=== PATIENT | male | born 1965 | race Caucasian/White ===

== ENCOUNTER 2016-10-11 07:11 | Emergency (ER) | payer OTHER ==
[2016-10-11 08:28] VITALS: BP 170/99
--- NOTE | 2016-10-17 11:47 | ED ---
Throat Pain/Nasal Congestion - HPI Summary HPI Summary: Pt here w/ Rt eyelid and surrounding area w/ redness and swelling x few days. Was seen by PCP yesterday and told to come to ED if swelling got worse - he and feel he has new onset of swelling beneath the eye now upon waking this morning. Pt denies visual change and ocular pain. No d/c or crusting. Pt has had sinus pressure and nasal congestion then eye started to swell along lid. Initially thought this was a stye however PCP dx'd w/ cellultitis and placed him on anbx which he's taken for 24 hours now. Reports swelling is worse in the AM and better as he's upright/day goes on. Denies fever, chills, ST, otalgia, neck pain, rash, scalp pain, dental pain. No trauma to eye or face prior to events starting. Does not wear contact lenses. Pt has a family member who developed orbital cellulitis so they came to be sure this is not his dx today. - History of Current Complaint Chief Complaint: EDEyeProblem Time Seen by Provider: 10/11/16 07:46 Hx Obtained From: Patient, Family/Sample Carrier - - Allergies/Home Medications Allergies/Adverse Reactions: Allergies Allergy/AdvReac Type Severity Reaction Status Date / Time No Known Allergies Allergy Verified 08/02/16 12:14 PMH/Surg Hx/FS Hx/Imm Hx Previously Healthy: Yes Endocrine/Hematology History: Denies: Autoimmune Disease Sensory History: Denies: Hx Cataracts, Hx Contacts or Glasses, Hx Eye Injury, Hx Eye Prosthesis, Hx Glaucoma, Hx Macular Degeneration, Hx Vision Problem Opthamlomology History: Denies: Hx Contacts or Glasses Infectious Disease History: No Infectious Disease History: Denies: Traveled Outside the [place] in Last 30 Days - Family History Known Family History: Positive: None - Social History Occupation: Employed Full-time - [employer] Lives: With Family Alcohol Use: Weekly Alcohol Amount: 1-2x/week Hx Substance Use: No Substance Use Type: Reports: None Hx Tobacco Use: No Smoking Status (MU): Never Smoked Tobacco Review of Systems Constitutional: Negative Eyes: Other - see HPI ENT: Negative Negative: Chest Pain Negative: Shortness Of Breath, Cough Gastrointestinal: Negative Positive: no symptoms reported Musculoskeletal: Negative Skin: Other - see HPI Negative: Headache, Weakness, Paresthesia, Numbness Psychological: Normal All Other Systems Reviewed And Are Negative: Yes Physical Exam Triage Information Reviewed: Yes Vital Signs On Initial Exam: Initial Vitals Temp Pulse Resp BP Pulse Ox 97.8 F 84 16 174/115 98 10/11/16 07:17 10/11/16 07:17 10/11/16 07:17 10/11/16 07:17 10/11/16 07:17 Vital Signs Reviewed: Yes Appearance: Positive: Well-Appearing, No Pain Distress, Obese Skin: Positive: Warm, Dry - Rt superior palpebra w/ erythema and edema but is not occulusive to pt's visual field - no flaking skin, no vesicles, no drainage no pustules within lid or margin; skin in infraorbital region w/ very mild erythema and edema and again no abnormal skin texture nor lesions observed Head/Face: Positive: Other - Rt maxillary sinus w/ mild TTP Eyes: Positive: Normal, EOMI, RYAN, Conjunctiva Clear. Negative: Conjunctiva Inflammed, Discharge ENT: Positive: Normal ENT inspection, Hearing grossly normal, Pharynx normal, TMs normal. Negative: Pharyngeal erythema - cobblestonig, Nasal congestion, Nasal drainage Neck: Positive: Supple, Nontender, No Lymphadenopathy Respiratory/Lung Sounds: Positive: Clear to Auscultation, Breath Sounds Present. Negative: Rales, Rhonchi, Wheezes Cardiovascular: Positive: Normal, RRR Abdomen Description: Positive: Nontender Bowel Sounds: Positive: Present Musculoskeletal: Positive: Normal, Strength/ROM Intact Neurological: Positive: Normal, Sensory/Motor Intact, Alert, Oriented to Person Place, Time, CN Intact II-III Psychiatric: Positive: Normal - concerned Diagnostics - Vital Signs Vital Signs Temp Pulse Resp BP Pulse Ox 10/11/16 08:27 97.4 F 84 17 170/99 10/11/16 07:17 97.8 F 84 16 174/115 98 - Laboratory Lab Statement: Any lab studies that have been ordered have been reviewed, and results considered in the medical decision making process. EENT Course/Dx - Course Course Of Treatment: Pt's exam presents as periorbital cellulitis - does not appear to be into the orbit as he is moving his eye well and w/o pain - no exopthalmus - swelling worse in morning most likely d/t dependent fluid. Reviewed dx and course w/ pt and - education about orbital cellulitis and they will watch for danger s/sx of when to return. Pt and agree w/ plan to conitnue augmentin. - Diagnoses Provider Diagnoses: Periorbital cellulitis of right eye Discharge - Discharge Plan Condition: Stable Disposition: HOME Patient Education Materials: Periorbital Cellulitis in Adults (ED) Referrals: Effie Mosley MD [Primary Care Provider] - Additional Instructions: Complete augmentin antibiotic You may try warm/cool compresses to aid in swelling symptoms You may also try zyrtec for swelling before bed Try saline nasal spray and decongesting agents such as menthol cough drop, Brian' s vapor rub - DO NOT APPLY TO EYES Stay hydrated *If you develop fever, pain with ocular movements, nausea, neck pain
== END 2016-10-11 08:27 | disposition home or self-care (01) ==
LOC: ED 07:11
DX: L03.213 Periorbital cellulitis (principal)
CPT/HCPCS: 99281

== ENCOUNTER 2017-04-09 18:08 | Emergency (ER) | payer OTHER ==
[2017-04-09] MEDS ORDERED: NS 0.9% 1000 ML* 1,000 ML IV ONE (19:30)
[2017-04-09 21:48] VITALS: BP 143/99
--- NOTE | 2017-04-09 22:01 | UC ---
French Augustin Benjamin, scribed for Lukas Hill MD on 04/09/17 at 1900 . FLU HPI - HPI Summary HPI Summary: 52yo male c/o chills and fever of 102.6F last night. Pt also felt shaky at one point yesterday and reports body aches, and sore throat. Pt also had racing pulses and dry cough last night around 2am with some bilateral flank pain. 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 Pt took Tylenol and Advil [employer] while relieved his symptoms. Currently asymptomatic. Pt denies any urinary symptoms. Denies possibility of tick bites. - History of Current Complaint Chief Complaint: UCGeneralIllness Stated Complaint: FEVER,ACHES,COLD,COUGH Time Seen by Provider: 04/09/17 18:42 Hx Obtained From: Patient, Family/Pedorthist - Onset/Duration: Sudden Onset, Lasting Hours, Resolved Severity Currently: None Severity Initially: Mild Pain Intensity: 0 Pain Scale Used: 0-10 Numeric Associated Signs & Symptoms: Positive: Fever, T Max - 102.6F, F/C, Cough - dry, Sore Throat - Allergy/Home Medications Allergies/Adverse Reactions: Allergies Allergy/AdvReac Type Severity Reaction Status Date / Time No Known Allergies Allergy Verified 04/09/17 18:16 PMH/Surg Hx/FS Hx/Imm Hx Cardiovascular History: Hypertension - Surgical History Surgical History: Yes Surgery Procedure, Year, and Place: hernia repair - Family History Known Family History: Positive: Cardiac Disease, Hypertension, Diabetes - Social History Occupation: Employed Full-time Lives: With Family Alcohol Use: Weekly Alcohol Amount: 1-2x/week Substance Use Type: None Smoking Status (MU): Never Smoked Tobacco Review of Systems Constitutional: Fever, Chills Skin: Negative Eyes: Negative ENT: Negative Respiratory: Negative Cardiovascular: Negative Gastrointestinal: Negative Genitourinary: Negative Motor: Negative Neurovascular: Negative Musculoskeletal: Negative Neurological: Negative Psychological: Negative All Other Systems Reviewed And Are Negative: Yes Physical Exam Triage Information Reviewed: Yes Appearance: No Pain Distress, Well-Nourished, Ill-Appearing - mildly ill appearing Vital Signs: Initial Vital Signs Temp 100.6 F 04/09/17 18:10 Pulse 128 04/09/17 18:10 Resp 20 04/09/17 18:10 BP 152/104 04/09/17 18:10 Pulse Ox 97 04/09/17 18:10 Eye Exam: Normal Eyes: Positive: Conjunctiva Clear ENT: Positive: Normal ENT inspection Neck: Positive: Supple, Nontender Respiratory: Positive: Chest non-tender, Lungs clear, Normal breath sounds Cardiovascular: Positive: No Murmur, Tachycardia Abdomen Description: Positive: Nontender, Soft. Negative: CVA Tenderness (R), CVA Tenderness (L) Musculoskeletal: Positive: Strength Intact, ROM Intact Neurological: Positive: Alert, Muscle Tone Normal Psychological: Positive: Age Appropriate Behavior Skin: Negative: rashes Diagnostics - Laboratory Diagnostic Studies Completed/Ordered: UA: positive for blood, ketone, billirubin , and protein. - EKG Cardiac Rate: Tachycardia - 112 bpm Cardiac Rhythm: Sinus: Normal - Sinus tachycardia. Inverted T wave at III Ectopy: None ST Segment: Normal Flu Course/Dx - Course Course Of Treatment: Reviewed medications list. NO FOCUS FOR THE FEVER. DISCUSSED POSSIBLE CAUSES WITH PATIENT/. PATIENT HAD POSSIBLE LEGONELLA EXPOSURE AT WORK. TACHYCARDIA IMPROVED IN CLINIC AFTER NS 1LITER. DISCUSSED FURTHER EVAL IN ED. PATIENT PREFERS TO GO HOME AND GET SEEN AGAIN IF WORSE OR NOT IMPROVING. A VIRAL ILLNESS IS A POSSIBLE CAUSE. NO RESPIRATORY SX AT THIS TIME OTHER THAN A MILD COUGH. F/U PMD, GO TO ED IF WORSE. - Differential Dx/Diagnosis Provider Diagnoses: FEBRILE ILLNESS WITH DEHYDRATION Discharge - Discharge Plan Condition: Stable Disposition: HOME Patient Education Materials: Dehydration (ED), Fever in Adults (ED) Referrals: Effie Mosley MD [Primary Care Provider] - Additional Instructions: FOLLOW UP WITH YOUR DOCTOR. GO TO THE EMERGENCY DEPARTMENT FOR ANY WORSENING OF YOUR CONDITION; HEADACHE, STIFF NECK, SHORTNESS OF BREATH, YOU FEEL LIKE PASSING OUT OR QUESTIONS OR CONCERNS. The documentation as recorded by the French mccormick Benjamin accurately reflects the service I personally performed and the decisions made by me, Lukas Hill MD.
== END 2017-04-09 21:55 | disposition home or self-care (01) ==
LOC: UCEAST 18:08
DX: R50.9 Fever, unspecified (principal); E86.0 Dehydration; R00.0 Tachycardia, unspecified
CPT/HCPCS: 81003; 87086; 87899; 93005; 96360; 99211; G0463

== ENCOUNTER 2017-04-11 17:39 | Emergency (ER) | payer OTHER ==
[2017-04-11] MEDS ORDERED: NS 0.9% 1000 ML* 1,000 ML IV ONE (18:32)
[2017-04-11] MEDS ORDERED: ceFAZolin 1 GM in Dextrose (*) 1 GM/50 ML BAG IVPB ONE (18:34)
[2017-04-11 18:56] LABS: Hematocrit 45 % (42-52); Hemoglobin 14.6 g/dl (14.0-18.0); Mean Corpuscular HGB Conc 32 g/dl (31-36); Mean Corpuscular Hemoglobin 29 pg (27-31); Mean Corpuscular Volume 90 fL (80-94); Mean Platelet Volume 9 um3 (7.4-10.4); Red Blood Count 5.05 10^6/ul (4.0-5.4); Red Cell Distribution Width 14 % (10.5-15)
[2017-04-11 19:13] LABS: Albumin 4.1 g/dL (3.2-5.2); BUN/Creatinine Ratio 13.1 (8-20); C Reactive Protein 108.87 mg/L (< 5.00); Calcium 9.1 mg/dL (8.6-10.3); EGFR African American 102.5 (>60); EGFR Non-African American 79.7 (>60); Magnesium 2.2 mg/dL (1.9-2.7); Potassium 3.8 mmol/L (3.5-5.0); Total Bilirubin 0.6 mg/dL (0.2-1.0); Total Protein 7.1 g/dL (6.4-8.9)
--- NOTE | 2017-04-11 20:26 | RAD ---
HISTORY: Right lower extremity pain and swelling TECHNIQUE: Multiple transverse and longitudinal ultrasound images were obtained of the veins of the right lower extremity using grayscale, color Doppler, and spectral Doppler imaging with and without compression and with augmentation. FINDINGS: VEINS: The common femoral vein, deep femoral vein, femoral vein and popliteal vein are compressible throughout their course, with normal flow on color Doppler imaging and normal response to augmentation on spectral Doppler imaging. SOFT TISSUES: In the right popliteal fossa there is a mostly anechoic and avascular fluid collection measuring 1.5 x 2.4 cm in the axial plane and approximately 2.6 cm in sagittal length. In the deeper aspect of this collection there are several echogenic linear foci representing debris or septations. IMPRESSION: 1. No sonographic evidence of deep vein thrombosis. 2. Car cyst is noted.
--- NOTE | 2017-04-11 20:37 | ED ---
Chuck Augustin Salem, scribed for Kumar Cabrales MD on 04/11/17 at 2023 . Lower Extremity - HPI Summary HPI Summary: Patient is a 52 y/o M who presents to the ED with a RLE complaint. He reports edema and rash to RLE. He states that he was seen in the clinic a couple of days ago and was prescribed Keflex, but he is yet to start it. Pt presents because rash has been spreading. He also reports edema of lymph node in right groin. He expresses concern of cellulitis. - History of Current Complaint Chief Complaint: EDExtremityLower Stated Complaint: RT LEG SWOLLEN Time Seen by Provider: 04/11/17 18:23 Hx Obtained From: Patient Mechanism Of Injury: Unknown Onset of Pain: Days Onset/Duration: Days Severity Initially: Moderate Severity Currently: Moderate Pain Intensity: 0 Pain Scale Used: 0-10 Numeric Timing: Constant Location: Is Discrete @ - RLE. Associated Signs And Symptoms: Positive: Swelling Aggravating Factor(s): Nothing Alleviating Factor(s): Nothing Able to Bear Weight: Yes - Allergies/Home Medications Allergies/Adverse Reactions: Allergies Allergy/AdvReac Type Severity Reaction Status Date / Time No Known Allergies Allergy Verified 04/11/17 18:24 PMH/Surg Hx/FS Hx/Imm Hx Endocrine/Hematology History: Denies: Hx Diabetes, Hx Thyroid Disease Cardiovascular History: Reports: Hx Hypertension Respiratory History: Denies: Hx Asthma, Hx Chronic Obstructive Pulmonary Disease (COPD) GI History: Denies: Hx Ulcer Sensory History: Denies: Hx Cataracts, Hx Contacts or Glasses, Hx Eye Injury, Hx Eye Prosthesis, Hx Glaucoma, Hx Macular Degeneration, Hx Vision Problem Opthamlomology History: Denies: Hx Cataracts, Hx Contacts or Glasses, Hx Eye Injury, Hx Eye Prosthesis, Hx Glaucoma, Hx Macular Degeneration, Hx Vision Problem - Surgical History Surgery Procedure, Year, and Place: hernia repair Infectious Disease History: No Infectious Disease History: Denies: Hx Clostridium Difficile, Hx Hepatitis, Hx Human Immunodeficiency Virus (HIV), Hx of Known/Suspected MRSA, Hx Shingles, Hx Tuberculosis, Hx Known/ Suspected VRE, Hx Known/Suspected VRSA, History Other Infectious Disease, Traveled Outside the [place] in Last 30 Days - Family History Known Family History: Positive: Cardiac Disease, Hypertension, Diabetes - Social History Alcohol Use: Weekly Alcohol Amount: 1-2x/week Hx Substance Use: No Substance Use Type: Reports: None Hx Tobacco Use: No Smoking Status (MU): Never Smoked Tobacco Review of Systems Negative: Fever Positive: Edema - RLE. , Other - RLE edema. Positive: Rash - RLE. All Other Systems Reviewed And Are Negative: Yes Physical Exam Triage Information Reviewed: Yes Vital Signs On Initial Exam: Initial Vitals Temp Pulse Resp BP Pulse Ox 98.9 F 92 20 142/99 98 04/11/17 17:45 04/11/17 17:45 04/11/17 17:45 04/11/17 17:45 04/11/17 17:45 Vital Signs Reviewed: Yes Appearance: Positive: Well-Appearing, No Pain Distress Skin: Positive: Warm Head/Face: Positive: Normal Head/Face Inspection Eyes: Positive: RYAN ENT: Positive: Hearing grossly normal Neck: Positive: Supple Respiratory/Lung Sounds: Positive: Clear to Auscultation, Breath Sounds Present Cardiovascular: Positive: RRR Abdomen Description: Positive: Nontender, Soft Bowel Sounds: Positive: Present Musculoskeletal: Positive: Other - mildly swollen rle with distal area of erythema and warmth and tenderness, no connie Neurological: Positive: Alert, Oriented to Person Place, Time - Emelle Coma Scale Coma Scale Total: 15 Diagnostics - Vital Signs Vital Signs Temp Pulse Resp BP Pulse Ox 04/11/17 19:41 92 16 149/87 04/11/17 18:31 23 04/11/17 18:30 168/108 04/11/17 18:25 169/112 04/11/17 17:45 98.9 F 92 20 142/99 98 - Laboratory Lab Results: Lab Results 04/11/17 04/11/17 Range/Units 18:46 18:46 WBC 7.0 (3.5-10.8) 10^3/ul RBC 5.05 (4.0-5.4) 10^6/ul Hgb 14.6 (14.0-18.0) g/dl Hct 45 (42-52) % MCV 90 (80-94) fL MCH 29 (27-31) pg MCHC 32 (31-36) g/dl RDW 14 (10.5-15) % Plt Count 150 (150-450) 10^3/ul MPV 9 (7.4-10.4) um3 Neut % (Auto) 60.4 (38-83) % Lymph % (Auto) 26.8 (25-47) % Estill % (Auto) 10.5 H (1-9) % Eos % (Auto) 2.0 (0-6) % Baso % (Auto) 0.3 (0-2) % Absolute Neuts (auto) 4.2 (1.5-7.7) 10^3/ul Absolute Lymphs (auto) 1.9 (1.0-4.8) 10^3/ul Absolute Monos (auto) 0.7 (0-0.8) 10^3/ul Absolute Eos (auto) 0.1 (0-0.6) 10^3/ul Absolute Basos (auto) 0 (0-0.2) 10^3/ul Absolute Nucleated RBC 0.01 10^3/ul Nucleated RBC % 0.2 Sodium 136 (133-145) mmol/L Potassium 3.8 (3.5-5.0) mmol/L Chloride 103 (101-111) mmol/L Carbon Dioxide 25 (22-32) mmol/L Anion Gap 8 (2-11) mmol/L BUN 13 (6-24) mg/dL Creatinine 0.99 (0.67-1.17) mg/dL Est GFR ( Amer) 102.5 (>60) Est GFR (Non-Af Amer) 79.7 (>60) BUN/Creatinine Ratio 13.1 (8-20) Glucose 99 (70-100) mg/dL Calcium 9.1 (8.6-10.3) mg/dL Magnesium 2.2 (1.9-2.7) mg/dL Total Bilirubin 0.60 (0.2-1.0) mg/dL AST 25 (13-39) U/L ALT 42 (7-52) U/L Alkaline Phosphatase 55 (34-104) U/L C-Reactive Protein 108.87 H (< 5.00) mg/L Total Protein 7.1 (6.4-8.9) g/dL Albumin 4.1 (3.2-5.2) g/dL Globulin 3.0 (2-4) g/dL Albumin/Globulin Ratio 1.4 (1-3) Result Diagrams: 04/11/17 18:46 04/11/17 18:46 Lab Statement: Any lab studies that have been ordered have been reviewed, and results considered in the medical decision making process. - Ultrasound No standard instances Ultrasound Interpretation Completed By: Radiologist - IMPRESSION: 1. No sonographic evidence of deep vein thrombosis. 2. Car cyst is noted. Re-Evaluation - Re-Evaluation First Eval Re-Evaluation Time: 20:35 Comment: Discussed results. Lower Extremity Course/Dx - Course Course Of Treatment: 52 y/o M presents with edema and rash to RLE. He states that he was seen in the clinic a couple of days ago and was prescribed Keflex, but he is yet to start it. Pt presents because rash has been spreading. He received IV fluids and Kefzol 1 GM in Dextrose Duplex in ED course. US shows, per radiology, IMPRESSION: 1. No sonographic evidence of deep vein thrombosis. 2. Car cyst is noted. Pt will be DC'd. - Diagnoses Provider Diagnoses: Cellulitis Discharge - Discharge Plan Condition: Stable Disposition: HOME Patient Education Materials: Cellulitis (ED) Forms: *Work Release Referrals: Effie Mosley MD [Primary Care Provider] - Additional Instructions: Please continue the prescription from your primary care provider and follow up with her. The documentation as recorded by the Chuck mccormick Salem accurately reflects the service I personally performed and the decisions made by me, Kumar Cabrales MD.
[2017-04-11 21:18] VITALS: BP 143/77
== END 2017-04-11 21:17 | disposition home or self-care (01) ==
LOC: ED 17:39
DX: L03.90 Cellulitis, unspecified (principal); R21 Rash and other nonspecific skin eruption; R60.9 Edema, unspecified
CPT/HCPCS: 36415; 80053; 83735; 85025; 86140; 96360; 99283; J0690

== ENCOUNTER 2020-10-08 06:19 | Observation (INO) ==
[~2020-10-08 06:19] MED LIST: Buffered Lidocaine 1% SYRIN 1 ml INTRADERM ONE; Famotidine IV 10 MG/ML 2 ml VIAL (20 mg) IV ONE; Lactated Ringers 1000 ml BAG 1,000 ML IV SCH; Sodium Citrate/Citric Acid LIQ 15 ML UDC PO ONE
[2020-10-08] MEDS ORDERED: ceFAZolin 2 GM PREMIX 2 GM/50 ML BAG ONE (06:45)
[2020-10-08] MEDS ORDERED: ceFAZolin 1 GM ADVAN 1 GM ADDV.VIAL IVPB ONE (06:45)
[2020-10-08] MEDS ORDERED: Famotidine IV 10 MG/ML 2 ml VIAL (20 mg) ONE (06:45)
[2020-10-08] MEDS ORDERED: Sodium Citrate/Citric Acid LIQ 15 ML UDC ONE (06:45)
[2020-10-08] MEDS ORDERED: Rocuronium 50 mg VIAL 10 mg/ml 5 ml VIAL (50 mg) ONE (06:59)
[2020-10-08] MEDS ORDERED: fentaNYL 100 mcg/2 ml 50 MCG/ML VIAL ONE ×2 (06:59→10:31)
[2020-10-08] MEDS ORDERED: Sterile Water for Inj 10 ML ONE (06:59)
[2020-10-08] MEDS ORDERED: Midazolam 2 mg/2 ml VIAL 1 mg/ml 2 ml VIAL (2 mg) ONE (06:59)
[2020-10-08] MEDS ORDERED: EPHEDrine (Pressors) 50 MG/ML VIAL ONE (06:59)
[2020-10-08] MEDS ORDERED: Phenylephrine IV 10 MG/ML 1 ml VIAL ONE (07:00)
[2020-10-08] MEDS ORDERED: Propofol 10 MG/ML 20 ML BTL ONE ×3 (07:00→10:20)
[2020-10-08] MEDS ORDERED: Phenylephrine 40 mcg/mL 10mL (400mcg) SYRINGE ONE (07:00)
[2020-10-08] MEDS ORDERED: Bupivacaine 0.5% SDV PF 30ML VIAL ONE (07:15)
[2020-10-08] MEDS ORDERED: Glycopyrrolate IV 0.2 MG/ML 1 ML VIAL ONE (09:00)
[2020-10-08] MEDS ORDERED: Naloxone 0.4 mg VIAL 0.4 mg/ml 1 ml VIAL IV PRN (09:16)
[2020-10-08] MEDS ORDERED: fentaNYL 100 mcg/2 ml 50 MCG/ML VIAL IV PRN (09:16)
[2020-10-08] MEDS ORDERED: Ondansetron 4 mg VIAL 2 MG/ML 2 ml VIAL IV PRN ×2 (09:16→11:05)
[2020-10-08] MEDS ORDERED: HYDROmorphone 1 MG/1 ML SYRINGE IV PRN (09:16)
[2020-10-08] MEDS ORDERED: Magnesium Hydroxide LIQ 30 ML UDC PO PRN (11:05)
[2020-10-08] MEDS ORDERED: Morphine 2 MG/ML SYRINGE IV PRN (11:05)
[2020-10-08] MEDS ORDERED: diPHENhydraMINE 25 mg TAB PO PRN (11:05)
[2020-10-08] MEDS ORDERED: Ondansetron ODT 4 mg TAB 4 MG TAB PO PRN (11:05)
[2020-10-08] MEDS ORDERED: diPHENhydraMINE IV 50 MG/ML 1 ml VIAL (BENADRYL) IV PRN (11:05)
[2020-10-08] MEDS ORDERED: Lactulose 30 ml UDC PO PRN (11:05)
[2020-10-08] MEDS: Lactated Ringers 1000 ml BAG 1,000 ML IV SCH ×2 (13:15→22:51)
[2020-10-08] MEDS: ceFAZolin 1 GM ADVAN 1 GM in NS 0.9% 50 ML 50 ML IVPB SCH (16:23)
[2020-10-08] MEDS: Magnesium Hydroxide LIQ 30 ML UDC PO SCH (20:53)
[2020-10-09] MEDS: ceFAZolin 1 GM ADVAN 1 GM in NS 0.9% 50 ML 50 ML IVPB SCH ×2 (00:02→08:11)
[2020-10-09 05:53] LABS: Hematocrit 34 % (42-52); Hemoglobin 11.9 g/dL (14.0-18.0); Mean Platelet Volume 8.5 fL (7.4-10.4); Platelet Count 179 10^3/uL (150-450)
[2020-10-09 06:16] LABS: BUN/Creatinine Ratio 12.7 (8-20); Calcium 8.1 mg/dL (8.6-10.3); EGFR African American 139.9 (>60); EGFR Non-African American 115.6 (>60); Potassium 2.9 mmol/L (3.5-5.0)
[2020-10-09] MEDS: Potassium Chlor 20 meq TAB.ER PO SCH ×3 (08:11→14:09)
[2020-10-09] MEDS: Vitamin THERAPEUTIC TAB PO SCH (08:11)
[2020-10-09] MEDS: Magnesium Hydroxide LIQ 30 ML UDC PO SCH ×2 (08:14→21:23)
[2020-10-09 12:05] LABS: Calcium 7.8 mg/dL (8.6-10.3); EGFR African American 142.2 (>60); EGFR Non-African American 117.5 (>60); Potassium 3.2 mmol/L (3.5-5.0)
[2020-10-09 14:16] LABS: Urine Creatinine Concentration 51.17 mg/dL
[2020-10-09] MEDS ORDERED: Potassium Chlor 20 meq TAB.ER PO ONE ×2 (14:24→17:50)
[2020-10-09] MEDS ORDERED: NS 0.9% 1000 ml BAG 1,000 ML IV SCH (14:30)
[2020-10-09 17:13] LABS: Calcium 8.3 mg/dL (8.6-10.3); EGFR African American 142.2 (>60); EGFR Non-African American 117.5 (>60); Potassium 3.3 mmol/L (3.5-5.0)
[2020-10-09 18:19] LABS: Magnesium 1.7 mg/dL (1.9-2.7)
[2020-10-09] MEDS: NS 0.9% 1000 ml BAG 1,000 ML IV SCH (18:45)
[2020-10-10 05:15] LABS: Hematocrit 34 % (42-52); Mean Platelet Volume 8.2 fL (7.4-10.4); Platelet Count 168 10^3/uL (150-450)
[2020-10-10 05:35] LABS: BUN/Creatinine Ratio 11.7 (8-20); Calcium 7.9 mg/dL (8.6-10.3); EGFR African American 169.9 (>60); EGFR Non-African American 140.4 (>60); Potassium 3.5 mmol/L (3.5-5.0)
[2020-10-10] MEDS: NS 0.9% 1000 ml BAG 1,000 ML IV SCH (06:27)
[2020-10-10 07:42] VITALS: BP 128/84
[2020-10-10] MEDS: Vitamin THERAPEUTIC TAB PO SCH (09:06)
[2020-10-10] MEDS: Magnesium Hydroxide LIQ 30 ML UDC PO SCH (09:06)
== END 2020-10-10 10:50 | disposition home or self-care (01) ==
LOC: SSU 06:19 → OR 06:19 → EDSTATUS 15:30
PROVIDERS: ADMIT Orthopaedic Surgery Adult Reconstructive Orthopaedic Surgery; ATTEND Orthopaedic Surgery Adult Reconstructive Orthopaedic Surgery